=== PATIENT | female | born 1990 | race Caucasian/White ===

== ENCOUNTER 2016-12-27 15:18 | Inpatient (IN) | payer OTHER ==
[~2016-12-27] VITALS: Ht 162.6 cm; Wt 73.1 kg
[2016-12-27] VITALS (236 sets, daily range): BP systolic 115; BP diastolic 69; PULSE 112; TEMP 98.8; O2SAT 97–100
[~2016-12-27 15:18] MED LIST: BACTRIM DS 8001 TAB PO; CEFTIN 250250 MG/TAB PO; CEPHALEXIN500 M1 PO; CIPRO 500MG TA500 MG PO; DIFLUCAN 100MG100 MG PO; DIFLUCAN150 MG PO; DIFLUCAN200 MG PO; FLEXERIL 1010 MG/TAB PO; IMPLANON68 MG ID; LEVEMIR SC; NORCO 325 MG-51 TAB PO; NOVLOG SC; PEN-VEE K500 MG PO; PERCOCET 325 MG1 TA2 PO; PHENERGAN 25 TA25 MG PO; PRILOSEC 20MG20 MG PO; PRINIVIL5 MG PO; TOUJEO300 U/ML SQ; ZANAFLEX2 MG PO
[2016-12-27] MEDS ORDERED: NEXPLANON68 MG ID (15:49)
[2016-12-27 15:59] LABS: VENOUS BLOOD GAS BE -20.4 (-4-4); VENOUS BLOOD GAS SAO2 72.1 % (60-80)
[2016-12-27 16:00] LABS: VENOUS BLOOD GAS SITE VENIPUNCTURE
[2016-12-27 17:21] LABS: BASO % 0.3 % (0.0-2.0); EOS % 0.1 % (0-4.0); GRAN # 9.3 (1.4-6.5); GRAN % 79.5 % (42.2-75.2); HEMATOCRIT 45.5 % (37.0-47.0); HEMOGLOBIN 15.8 g/dl (12.5-16.0); LYMPH # 1.4 (1.2-3.4); LYMPH % 12.2 % (20.0-51.0); MEAN CELL VOLUME 93 fl (80.0-100.0); MEAN CORPUSCULAR HEMOGLOBIN 32 pg (27.0-31.0); MEAN CORPUSCULAR HGB CONC 35 g/dl (33.0-37.0); MEAN PLATELET VOLUME 10.2 fl (7.4-10.4); MONO # 0.9 (0.1-0.6); MONO % 7.4 % (1.7-9.3); PLATELET COUNT 266 K/mm3 (130-400); REDCELL DISTRIBUTION WIDTH-CV 12.2 % (11.5-14.5); WHITE BLOOD COUNT 11.7 K/mm3 (4.8-10.8)
[2016-12-27 17:35] LABS: ADJUSTED CALCIUM 8.3 mg/dL (8.4-10.2); ALANINE AMINOTRANSFERASE 19 U/L (9-52); ALKALINE PHOSPHATASE 73 U/L (50-136); ANION GAP 22 mmol/L (7-16); BILIRUBIN,TOTAL 0.7 mg/dL (0.0-1.0); BLOOD UREA NITROGEN 7 mg/dL (7-17); C-REACTIVE PROTEIN < 0.5 mg/dL (0.0-0.9); CALCIUM 8.3 mg/dL (8.4-10.2); CHLORIDE 111 mmol/L (98-107); CREATININE, serum 0.54 mg/dL (0.52-1.25); GLUCOSE 227 mg/dL (74-106); LIPASE 18 U/L (23-300); POTASSIUM 3.8 mmol/L (3.4-5.0); SODIUM 138 mmol/L (137-145); TOTAL PROTEIN 7.2 gm/dL (6.4-8.2)
[2016-12-27 17:36] LABS: CARBON DIOXIDE 5 mmol/L (22-30)
[2016-12-27 17:40] LABS: PH 5 (5-8); URINE APPEARANCE Hazy; URINE BACTERIA Rare /hpf; URINE BILIRUBIN Negative (NEGATIVE); URINE BLOOD 2+ (NEGATIVE); URINE COLOR Yellow; URINE GLUCOSE 3+ (NEGATIVE); URINE KETONE 2+ (NEGATIVE); URINE RBC 20-50 /hpf; URINE UROBILINOGEN Negative (NEGATIVE); URINE WBC 0-2 /hpf
[2016-12-27 18:52] LABS: MAGNESIUM 1.5 mg/dL (1.6-2.3)
[2016-12-27 19:27] LABS: PHOSPHOROUS 3.3 mg/dL (2.5-4.5)
[2016-12-27 23:02] LABS: CREATININE, serum 0.56 mg/dL (0.52-1.25); POTASSIUM 3.5 mmol/L (3.4-5.0)
[2016-12-28] VITALS (429 sets, daily range): BP systolic 113–132; BP diastolic 75–105; PULSE 95–118; TEMP 97.6–98.8; O2SAT 56–100
[2016-12-28 06:36] LABS: CALCIUM 8.8 mg/dL (8.4-10.2); CREATININE, serum 0.48 mg/dL (0.52-1.25); POTASSIUM 3.6 mmol/L (3.4-5.0)
[2016-12-28 12:27] LABS: CALCIUM 8.6 mg/dL (8.4-10.2); CREATININE, serum 0.49 mg/dL (0.52-1.25); POTASSIUM 3.4 mmol/L (3.4-5.0)
[2016-12-28 17:44] LABS: CALCIUM 8.8 mg/dL (8.4-10.2); CREATININE, serum 0.4 mg/dL (0.52-1.25); POTASSIUM 3.7 mmol/L (3.4-5.0)
[2016-12-28 23:12] LABS: CREATININE, serum 0.39 mg/dL (0.52-1.25); POTASSIUM 3.9 mmol/L (3.4-5.0)
[2016-12-29] VITALS (242 sets, daily range): BP systolic 89–113; BP diastolic 54–92; PULSE 78–95; TEMP 98–98.4; O2SAT 96–100
[2016-12-29 09:22] LABS: CALCIUM 8.8 mg/dL (8.4-10.2); CREATININE, serum 0.42 mg/dL (0.52-1.25)
[2016-12-29 12:03] LABS: BASO % 0.5 % (0.0-2.0); EOS # 0.1 (0.0-0.7); GRAN # 2.3 (1.4-6.5); GRAN % 53.1 % (42.2-75.2); LYMPH # 1.5 (1.2-3.4); MEAN CELL VOLUME 91 fl (80.0-100.0); MEAN CORPUSCULAR HGB CONC 35 g/dl (33.0-37.0); MEAN PLATELET VOLUME 11.3 fl (7.4-10.4); MONO # 0.5 (0.1-0.6); MONO % 10.2 % (1.7-9.3); PLATELET COUNT 228 K/mm3 (130-400); RED BLOOD COUNT 4.04 M/mm3 (4.10-5.30); REDCELL DISTRIBUTION WIDTH-CV 12.7 % (11.5-14.5); WHITE BLOOD COUNT 4.4 K/mm3 (4.8-10.8)
[2016-12-29 12:06] LABS: HEMATOCRIT 36.9 % (37.0-47.0); MEAN CORPUSCULAR HEMOGLOBIN 32 pg (27.0-31.0)
== END 2016-12-29 19:46 | disposition home or self-care (01) | DRG 639 ==
LOC: COL.ER 15:18 → IMCU 17:16
PROVIDERS: Emergency Medicine; Internal Medicine
DX: E10.10 Type 1 diabetes mellitus with ketoacidosis without coma (principal); Z79.4 Long term (current) use of insulin; F17.210 Nicotine dependence, cigarettes, uncomplicated
CPT/HCPCS: 99233-AI; 99239; J1644; J1815; J1885; J2270; J2405; J2550; J2765; J3010; J3475; J3480; J7030; Q9967

== ENCOUNTER 2017-04-16 08:59 | Emergency (ER) | payer OTHER ==
[~2017-04-16] VITALS: Ht 162.6 cm; Wt 60.6 kg
[~2017-04-16 08:59] MED LIST changes: +NEXPLANON68 MG ID
[2017-04-16 09:01] VITALS: BP 131/90; PULSE 95; TEMP 98.4
[2017-04-16] MEDS ORDERED: ULTRAM 50MG TAB50 MG PO (10:13)
== END 2017-04-16 10:28 | disposition home or self-care (01) ==
LOC: COL.ER 08:59
DX: S50.01XA Contusion of right elbow, initial encounter (principal); I10 Essential (primary) hypertension; E11.9 Type 2 diabetes mellitus without complications; Z79.4 Long term (current) use of insulin; F17.210 Nicotine dependence, cigarettes, uncomplicated; W22.8XXA Striking against or struck by other objects, initial encounter

== ENCOUNTER 2017-05-25 21:59 | Emergency (ER) | payer OTHER ==
[~2017-05-25] VITALS: Ht 162.6 cm; Wt 56.8 kg
[~2017-05-25 21:59] MED LIST changes: +ULTRAM 50MG TAB50 MG PO
[2017-05-25 22:01] VITALS: TEMP 98.2
[2017-05-25 22:47] LABS: BASO # 0.1 (0.0-0.2); BASO % 0.6 % (0.0-2.0); EOS # 0.2 (0.0-0.7); EOS % 2.1 % (0-4.0); GRAN # 3.7 (1.4-6.5); GRAN % 45.4 % (42.2-75.2); HEMATOCRIT 41.7 % (37.0-47.0); LYMPH # 3.7 (1.2-3.4); LYMPH % 44.9 % (20.0-51.0); MEAN CELL VOLUME 90 fl (80.0-100.0); MEAN CORPUSCULAR HEMOGLOBIN 32 pg (27.0-31.0); MEAN CORPUSCULAR HGB CONC 36 g/dl (33.0-37.0); MEAN PLATELET VOLUME 10.6 fl (7.4-10.4); MONO # 0.6 (0.1-0.6); MONO % 6.9 % (1.7-9.3); PLATELET COUNT 264 K/mm3 (130-400); RED BLOOD COUNT 4.64 M/mm3 (4.10-5.30); REDCELL DISTRIBUTION WIDTH-CV 11.7 % (11.5-14.5); WHITE BLOOD COUNT 8.2 K/mm3 (4.8-10.8)
[2017-05-25 22:52] LABS: VENOUS BLOOD GAS BE -5.8 (-4-4); VENOUS BLOOD GAS SAO2 79.5 % (60-80)
[2017-05-25 22:53] LABS: VENOUS BLOOD GAS SITE VENIPUNCTURE
[2017-05-25 22:55] LABS: ADJUSTED CALCIUM 8.6 mg/dL (8.4-10.2); ALANINE AMINOTRANSFERASE 19 U/L (9-52); ALBUMIN 4.1 gm/dL (3.5-5.0); ALKALINE PHOSPHATASE 59 U/L (50-136); ANION GAP 16 mmol/L (7-16); BILIRUBIN,TOTAL 0.6 mg/dL (0.0-1.0); BLOOD UREA NITROGEN 7 mg/dL (7-17); CALCIUM 8.7 mg/dL (8.4-10.2); CARBON DIOXIDE 16 mmol/L (22-30); CHLORIDE 104 mmol/L (98-107); CREATININE, serum 0.38 mg/dL (0.52-1.25); GLUCOSE 323 mg/dL (74-106); POTASSIUM 3.7 mmol/L (3.4-5.0); SODIUM 135 mmol/L (137-145); TOTAL PROTEIN 6.9 gm/dL (6.4-8.2)
[2017-05-25] MEDS ORDERED: CLEOCIN HC150 MG/CAP PO (23:00)
[2017-05-25] MEDS ORDERED: NORCO 325 MG-51 TAB PO (23:00)
[2017-05-26 00:21] VITALS: BP 118/72; PULSE 89
== END 2017-05-26 00:22 | disposition home or self-care (01) ==
LOC: COL.ER 21:59
PROVIDERS: Emergency Medicine
DX: K08.89 Other specified disorders of teeth and supporting structures (principal); E10.10 Type 1 diabetes mellitus with ketoacidosis without coma; Z79.4 Long term (current) use of insulin
CPT/HCPCS: J1815; J1885; J7030

== ENCOUNTER 2017-08-16 16:13 | Emergency (ER) | payer OTHER ==
[~2017-08-16] VITALS: Ht 162.6 cm; Wt 56.8 kg
[~2017-08-16 16:13] MED LIST changes: +CLEOCIN HC150 MG/CAP PO
[2017-08-16 16:16] VITALS: BP 144/88; PULSE 111; TEMP 98.3
[2017-08-16] MEDS ORDERED: NORCO 325 MG-51 TAB PO (16:37)
[2017-08-16] MEDS ORDERED: AMOXICILLIN 50500 MG PO (16:37)
[2017-08-16] MEDS ORDERED: DIFLUCAN150 MG PO (16:37)
== END 2017-08-16 16:53 | disposition home or self-care (01) ==
LOC: COL.ER 16:13
DX: G89.18 Other acute postprocedural pain (principal); R68.84 Jaw pain; E10.9 Type 1 diabetes mellitus without complications
CPT/HCPCS: J1885

== ENCOUNTER 2017-09-19 19:28 | Inpatient (IN) | payer BC ==
[~2017-09-19] VITALS: Ht 162.6 cm; Wt 55.8 kg
[2017-09-19] VITALS (49 sets, daily range): O2SAT 92–96
[~2017-09-19 19:28] MED LIST changes: +AMOXICILLIN 50500 MG PO
[2017-09-19 19:52] LABS: COLLECTION METHOD CLEAN CATCH
[2017-09-19 19:59] LABS: PH 6 (5-8); URINE APPEARANCE Clear; URINE BACTERIA None Seen /hpf; URINE BILIRUBIN Negative (NEGATIVE); URINE BLOOD Negative (NEGATIVE); URINE COLOR Straw; URINE GLUCOSE 3+ (NEGATIVE); URINE KETONE 2+ (NEGATIVE); URINE LEUKOCYTE ESTERASE Negative (NEGATIVE); URINE PROTEIN(semi-quant) Negative (NEGATIVE); URINE RBC 0-2 /hpf; URINE UROBILINOGEN Negative (NEGATIVE); URINE WBC 0-2 /hpf
[2017-09-19 20:05] LABS: BASO # 0.1 (0.0-0.2); BASO % 0.8 % (0.0-2.0); EOS # 0.1 (0.0-0.7); EOS % 1.5 % (0-4.0); GRAN # 4.8 (1.4-6.5); GRAN % 55.1 % (42.2-75.2); HEMOGLOBIN 15.3 g/dl (12.5-16.0); LYMPH # 2.8 (1.2-3.4); LYMPH % 32.8 % (20.0-51.0); MEAN CELL VOLUME 92 fl (80.0-100.0); MEAN CORPUSCULAR HEMOGLOBIN 33 pg (27.0-31.0); MEAN CORPUSCULAR HGB CONC 36 g/dl (33.0-37.0); MEAN PLATELET VOLUME 10.2 fl (7.4-10.4); MONO # 0.8 (0.1-0.6); MONO % 9.6 % (1.7-9.3); PLATELET COUNT 254 K/mm3 (130-400); WHITE BLOOD COUNT 8.7 K/mm3 (4.8-10.8)
[2017-09-19 20:06] LABS: VENOUS BLOOD GAS BE -12.2 (-4-4); VENOUS BLOOD GAS SAO2 97.6 % (60-80)
[2017-09-19 20:07] LABS: VENOUS BLOOD GAS SITE VENIPUNCTURE
[2017-09-19 20:19] LABS: ADJUSTED CALCIUM 9.4 mg/dL (8.4-10.2); ALANINE AMINOTRANSFERASE 19 U/L (9-52); ALBUMIN 4.6 gm/dL (3.5-5.0); ALKALINE PHOSPHATASE 81 U/L (50-136); ANION GAP 22 mmol/L (7-16); BILIRUBIN,TOTAL 0.9 mg/dL (0.0-1.0); BLOOD UREA NITROGEN 15 mg/dL (7-17); C-REACTIVE PROTEIN < 0.5 mg/dL (0.0-0.9); CALCIUM 9.9 mg/dL (8.4-10.2); CHLORIDE 100 mmol/L (98-107); CREATININE, serum 0.54 mg/dL (0.52-1.25); LIPASE 58 U/L (23-300); POTASSIUM 3.7 mmol/L (3.4-5.0); SODIUM 131 mmol/L (137-145); TOTAL PROTEIN 7.1 gm/dL (6.4-8.2)
[2017-09-19 20:20] LABS: CARBON DIOXIDE 9 mmol/L (22-30); GLUCOSE 463 mg/dL (74-106)
[2017-09-19 20:23] LABS: ACETONE,SERUM MODERATE
[2017-09-19 22:52] LABS: MAGNESIUM 1.5 mg/dL (1.6-2.3); PHOSPHOROUS 3.4 mg/dL (2.5-4.5)
[2017-09-19 23:01] LABS: CALCIUM 8.5 mg/dL (8.4-10.2); CREATININE, serum 0.49 mg/dL (0.52-1.25); POTASSIUM 3.3 mmol/L (3.4-5.0)
[2017-09-20] VITALS (250 sets, daily range): BP systolic 97–110; BP diastolic 63–78; PULSE 80–104; TEMP 97–98.5; O2SAT 92–100
[2017-09-20 01:53] LABS: CALCIUM 7.9 mg/dL (8.4-10.2); CREATININE, serum 0.37 mg/dL (0.52-1.25); POTASSIUM 3.5 mmol/L (3.4-5.0)
[2017-09-20 03:52] LABS: CALCIUM 7.7 mg/dL (8.4-10.2); CREATININE, serum 0.38 mg/dL (0.52-1.25); POTASSIUM 3.7 mmol/L (3.4-5.0)
[2017-09-20 06:25] LABS: CALCIUM 7.7 mg/dL (8.4-10.2); CREATININE, serum 0.35 mg/dL (0.52-1.25); POTASSIUM 3.4 mmol/L (3.4-5.0)
[2017-09-20 08:44] LABS: CALCIUM 7.6 mg/dL (8.4-10.2); CREATININE, serum 0.35 mg/dL (0.52-1.25); POTASSIUM 3.5 mmol/L (3.4-5.0)
[2017-09-20 10:30] LABS: CREATININE, serum 0.37 mg/dL (0.52-1.25); POTASSIUM 3.8 mmol/L (3.4-5.0)
[2017-09-21] VITALS: BP 102/55; PULSE 99; TEMP 98.2
[2017-09-21 04:07] VITALS: BP 101/64; PULSE 95; TEMP 98.7
[2017-09-21 07:26] VITALS: BP 101/68; PULSE 93; TEMP 98.3
[2017-09-21 08:30] LABS: CALCIUM 8.5 mg/dL (8.4-10.2); CREATININE, serum 0.38 mg/dL (0.52-1.25); MAGNESIUM 1.6 mg/dL (1.6-2.3); POTASSIUM 3.2 mmol/L (3.4-5.0)
[2017-09-21 11:27] VITALS: BP 121/81; PULSE 97
== END 2017-09-21 14:00 | disposition home or self-care (01) | DRG 639 ==
LOC: COL.ER 19:28 → ICU 20:47 → MEDICAL 09-20 16:45
PROVIDERS: Emergency Medicine; Nurse Practitioner Family
DX: E10.10 Type 1 diabetes mellitus with ketoacidosis without coma (principal); E83.42 Hypomagnesemia; E87.6 Hypokalemia; F17.210 Nicotine dependence, cigarettes, uncomplicated; Z79.84 Long term (current) use of oral hypoglycemic drugs
CPT/HCPCS: 99223-AI; 99238; C9113; J1650; J1815; J2405; J2550; J3475; J3480; J7030

== ENCOUNTER 2018-01-07 18:08 | Emergency (ER) | payer BC ==
[~2018-01-07] VITALS: Ht 162.6 cm; Wt 55.3 kg
[2018-01-07 18:10] VITALS: BP 132/94; TEMP 97.5
[2018-01-07 18:43] LABS: COLLECTION METHOD CLEAN CATCH
[2018-01-07 18:50] LABS: BASO # 0.1 (0.0-0.2); BASO % 0.6 % (0.0-2.0); EOS # 0.2 (0.0-0.7); EOS % 1.8 % (0-4.0); GRAN # 4.5 (1.4-6.5); GRAN % 49.3 % (42.2-75.2); HEMATOCRIT 43.8 % (37.0-47.0); HEMOGLOBIN 15.3 g/dl (12.5-16.0); LYMPH # 3.5 (1.2-3.4); LYMPH % 38.3 % (20.0-51.0); MEAN CELL VOLUME 92 fl (80.0-100.0); MEAN CORPUSCULAR HEMOGLOBIN 32 pg (27.0-31.0); MEAN CORPUSCULAR HGB CONC 35 g/dl (33.0-37.0); MEAN PLATELET VOLUME 10.4 fl (7.4-10.4); MONO # 0.9 (0.1-0.6); MONO % 9.8 % (1.7-9.3); PLATELET COUNT 251 K/mm3 (130-400); RED BLOOD COUNT 4.77 M/mm3 (4.10-5.30); REDCELL DISTRIBUTION WIDTH-CV 11.6 % (11.5-14.5)
[2018-01-07 18:55] LABS: ALBUMIN 4.6 gm/dL (3.5-5.0); BILIRUBIN,TOTAL 0.4 mg/dL (0.0-1.0); CALCIUM 8.9 mg/dL (8.4-10.2); CREATININE, serum 0.41 mg/dL (0.52-1.25); TOTAL PROTEIN 7.2 gm/dL (6.4-8.2)
[2018-01-07 19:04] LABS: MUCOUS Present /lpf; PH 5 (5-8); SQUAMOUS EPITHELIAL 20-50 /hpf; URINE APPEARANCE Cloudy; URINE BACTERIA None Seen /hpf; URINE BILIRUBIN Negative (NEGATIVE); URINE BLOOD Negative (NEGATIVE); URINE COLOR Yellow; URINE GLUCOSE 3+ (NEGATIVE); URINE KETONE 2+ (NEGATIVE); URINE LEUKOCYTE ESTERASE Negative (NEGATIVE); URINE NITRATE Negative (NEGATIVE); URINE PROTEIN(semi-quant) Negative (NEGATIVE); URINE UROBILINOGEN Negative (NEGATIVE)
[2018-01-07 23:28] VITALS: PULSE 92
== END 2018-01-07 23:27 | disposition home or self-care (01) ==
LOC: COL.ER 18:08
PROVIDERS: Emergency Medicine
DX: E10.10 Type 1 diabetes mellitus with ketoacidosis without coma (principal); K08.89 Other specified disorders of teeth and supporting structures; Z79.4 Long term (current) use of insulin
CPT/HCPCS: J1815; J1885; J2405; J3010; J7030; Q9967

== ENCOUNTER → 2018-01-13 | Outpatient (CLI) | payer BC | LOC: MC.RAD 14:15 | DX: N63.11 Unspecified lump in the right breast, upper outer quadrant (principal) ==

== ENCOUNTER 2018-01-22 14:39 | Emergency (ER) | payer BC ==
[~2018-01-22] VITALS: Ht 162.6 cm; Wt 54.5 kg
[2018-01-22 14:43] VITALS: TEMP 98
[2018-01-22] MEDS ORDERED: PRINIVIL5 MG PO (14:46)
[2018-01-22 15:33] LABS: COLLECTION METHOD CLEAN CATCH
[2018-01-22 15:53] LABS: PH 5 (5-8); URINE APPEARANCE Hazy; URINE BACTERIA None Seen /hpf; URINE BILIRUBIN Negative (NEGATIVE); URINE BLOOD 2+ (NEGATIVE); URINE COLOR Yellow; URINE GLUCOSE 3+ (NEGATIVE); URINE KETONE 2+ (NEGATIVE); URINE LEUKOCYTE ESTERASE Negative (NEGATIVE); URINE NITRATE Negative (NEGATIVE); URINE PROTEIN(semi-quant) Negative (NEGATIVE); URINE RBC 0-2 /hpf; URINE UROBILINOGEN Negative (NEGATIVE)
[2018-01-22 16:36] LABS: ALANINE AMINOTRANSFERASE 21 U/L (9-52); ALBUMIN 4.2 gm/dL (3.5-5.0); ALKALINE PHOSPHATASE 55 U/L (50-136); ANION GAP 17 mmol/L (7-16); AST,SGOT 20 U/L (15-37); BILIRUBIN,TOTAL 0.7 mg/dL (0.0-1.0); BLOOD UREA NITROGEN 14 mg/dL (7-17); CALCIUM 9.2 mg/dL (8.4-10.2); CARBON DIOXIDE 21 mmol/L (22-30); CHLORIDE 100 mmol/L (98-107); CREATININE, serum 0.44 mg/dL (0.52-1.25); GLUCOSE 293 mg/dL (74-106); SODIUM 138 mmol/L (137-145); TOTAL PROTEIN 7.1 gm/dL (6.4-8.2)
[2018-01-22] MEDS ORDERED: NORCO 325 MG-51 TAB PO (16:46)
[2018-01-22 17:02] LABS: ACETONE,SERUM SMALL; POTASSIUM 4.3 mmol/L (3.4-5.0)
[2018-01-22 18:57] VITALS: BP 113/78; PULSE 85
== END 2018-01-22 18:58 | disposition home or self-care (01) ==
LOC: COL.ER 14:39
PROVIDERS: Physician Assistant
DX: M54.31 Sciatica, right side (principal); E11.65 Type 2 diabetes mellitus with hyperglycemia; Z79.4 Long term (current) use of insulin
CPT/HCPCS: J1885; J7030